=== PATIENT | female | born 1985 | race Caucasian/White ===

== ENCOUNTER 2016-07-24 06:08 | Day surgery (SDC) | payer BC ==
[~2016-07-24 06:08] MED LIST: FLAG500TAB PO; OB COMPLET1 PO; OPANA ER20 MG PO; OXYCON20 PO; PHENTERMINE37.5 MG OR; T PO; ULTRAM50 PO; ZANAFLEX2 MG
== END 2016-07-24 23:59 | disposition home or self-care (01) ==
LOC: MSC 06:08
PROVIDERS: Surgery Plastic and Reconstructive Surgery
PROC: 0HBV0ZZ Excision of Bilateral Breast, Open Approach (ICD-10-PCS; principal; 2016-07-24 07:15)
DX: N62 Hypertrophy of breast (principal); M54.9 Dorsalgia, unspecified; M54.2 Cervicalgia; G89.21 Chronic pain due to trauma; Z87.891 Personal history of nicotine dependence; Z79.891 Long term (current) use of opiate analgesic; Z98.890 Other specified postprocedural states; Z98.51 Tubal ligation status
CPT/HCPCS: 84703; 88305; A9270-GY; J0690; J0735; J1170; J2250; J2405; J2710; J3010